=== PATIENT | female | born 1965 | race American Indian/Alaskan Native ===

== ENCOUNTER 2017-03-05 13:00 | Emergency (ER) | payer OTHER ==
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
[2017-03-05] MEDS ORDERED: HYDROmorphone 1 MG/ML Syringe IVPUSH ONE (13:32)
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
[2017-03-05 13:42] LABS: CHLORIDE,CL 102 mmol/L (101-111); SODIUM,NA 139 mmol/L (135-145)
--- NOTE | 2017-03-18 09:12 | EKG ---
03/05/2017- NICOLE MARIANO - EKG done on 51-year-old female showing sinus rhythm, normal axis. Heart rate of 84 beats per minute, No acute ST-T wave changes. [facility] /[id number] MTDD
== END 2017-03-05 14:37 | disposition home or self-care (01) ==
LOC: DL.ED 13:00
DX: S06.0X9A Concussion with loss of consciousness of unspecified duration, initial encounter (principal); S20.211A Contusion of right front wall of thorax, initial encounter; V89.2XXA Person injured in unspecified motor-vehicle accident, traffic, initial encounter; Z79.899 Other long term (current) drug therapy
CPT/HCPCS: 36415; 71010; 80053; 80305; 81001; 82550; 82553; 84484; 85025; 93005; 96374; 99285; G0480; J1170

== ENCOUNTER 2017-07-18 09:13 | Emergency (ER) | payer OTHER ==
--- NOTE | 2017-07-18 09:21 | EDM.PDOC ---
"ED HPI GENERAL MEDICAL PROBLEM - General Chief Complaint: Abdominal Pain Stated Complaint: ABDOMINAL PAIN Time Seen by Provider: 07/18/17 09:19 Source of Information: Reports: Patient, RN, RN Notes Reviewed History Limitations: Reports: No Limitations - History of Present Illness INITIAL COMMENTS - FREE TEXT/NARRATIVE: Pt presents to ER from home by POV with c/o left lower abdominal pain on and off x3 weeks, but much worse since yesterday. Pt admits to onset of fever and chills yesterday, and has nausea, alternating diarrhea & constipation, and urinary frequency. Denies vomiting, or blood in urine or stool. Onset: Gradual Duration: Constant, Getting Worse Location: Reports: Abdomen Quality: Reports: Ache, Pressure Severity: Severe Improves with: Reports: None Worsens with: Reports: None Associated Symptoms: Reports: No Other Symptoms Left Middle Abdomen Pain Score (Numeric/FACES): 6 - Related Data Allergies Allergy/AdvReac Type Severity Reaction Status Date / Time codeine Allergy Mild stomach Verified 07/18/17 09:20 cramping Home Meds: Home Meds Calcium Carbonate [Calcium] 500 mg PO DAILY 03/05/17 [History] Cholecalciferol (Vitamin D3) [Vitamin D3] 1 tab PO DAILY 03/05/17 [History] Multivitamin [Multi-Vitamin Daily] 1 tab PO DAILY 03/05/17 [History] Past Medical History - Past Health History Medical/Surgical History: Denies Medical/Surgical History Endocrine/Metabolic History: Reports: Obesity/BMI 30+ Social & Family History - Family History Family Medical History: Noncontributory - Living Situation & Occupation Living situation: Reports: with Family ED ROS GENERAL - Review of Systems Review Of Systems: ROS reveals no pertinent complaints other than HPI. ED EXAM, GI/ABD - Physical Exam Exam: See Below Exam Limited By: No Limitations General Appearance: Alert, WD/WN, No Apparent Distress, Obese Eyes: Bilateral: Normal Appearance Nose: Normal Inspection Throat/Mouth: Normal Inspection Head: Atraumatic, Normocephalic Neck: Normal Inspection Respiratory/Chest: No Respiratory Distress, Lungs Clear, Normal Breath Sounds, No Accessory Muscle Use, Chest Non-Tender Cardiovascular: Regular Rate, Rhythm, No Edema GI/Abdominal Exam: Normal Bowel Sounds, Soft, No Distention, Tender (acutely tender to palpation at LLQ abdomen). No: Guarding, Rigid, Rebound (Female) Exam: Deferred Rectal (Female) Exam: Deferred Back Exam: Normal Inspection, Full Range of Motion. No: CVA Tenderness (L), CVA Tenderness (R) Extremities: Normal Inspection Neurological: Alert, Oriented, No Motor/Sensory Deficits Psychiatric: Normal Affect, Normal Mood Skin Exam: Warm, Dry, Intact, Normal Color, No Rash Course - Vital Signs Last Recorded V/S: Last Vital Signs Temp 36.2 C 07/18/17 11:15 Pulse 57 L 07/18/17 11:15 Resp 19 07/18/17 11:15 BP 124/82 07/18/17 11:15 Pulse Ox 99 07/18/17 11:15 - Orders/Labs/Meds Orders: Active Orders 24 hr Category Date Time Status Peripheral IV Care [RC] . DIRECTED Care 07/18/17 09:50 Active Abdomen Pelvis w wo Cont [CT] Stat Exams 07/18/17 09:48 Taken Ciprofloxacin [Ciprofloxacin HCl] Med 07/18/17 11:17 Once 500 mg PO ONETIME ONE Sodium Chloride 0.9% [Saline Flush] Med 07/18/17 09:48 Active 10 ml FLUSH ASDIRECTED PRN metroNIDAZOLE Med 07/18/17 11:18 Once 500 mg PO ONETIME ONE Peripheral IV Insertion Adult [OM.PC] Stat Oth 07/18/17 09:48 Ordered Medication Orders Sodium Chloride (Saline Flush) 10 ml FLUSH ASDIRECTED PRN PRN Reason: Keep Vein Open Last Admin: 07/18/17 09:59 Dose: 10 ml Labs: Laboratory Tests 07/18/17 07/18/17 07/18/17 Range/Units 09:25 09:41 09:41 WBC 10.2 H (5.0-10.0) 10^3/uL RBC 4.64 (4.2-5.4) 10^6/uL Hgb 14.4 (12.0-16.0) g/dL Hct 44.2 (37.0-47.0) % MCV 95.3 (80-100) fL MCH 31.0 (27.0-34.0) pg MCHC 32.6 L (33.0-35.0) g/dL Plt Count 249 (150-450) 10^3/uL Neut % (Auto) 68.7 (42.2-75.2) % Lymph % (Auto) 19.8 L (20.5-50.1) % [place] % (Auto) 7.9 (2-8) % Eos % (Auto) 3.3 H (1.0-3.0) % Baso % (Auto) 0.3 (0.0-1.0) % Sodium 138 (135-145) mmol/L Potassium 4.4 (3.6-5.0) mmol/L Chloride 106 (101-111) mmol/L Carbon Dioxide 26.0 (21.0-31.0) mmol/L Anion Gap 10.4 BUN 12 (7-18) mg/dL Creatinine 0.8 (0.6-1.3) mg/dL Est Cr Clr Drug Dosing 81.81 mL/min Estimated GFR (MDRD) > 60 BUN/Creatinine Ratio 15.00 Glucose 99 (74-105) mg/dL Calcium 9.1 (8.4-10.2) mg/dl Total Bilirubin 1.1 H (0.2-1.0) mg/dL AST 15 (10-42) IU/L ALT 15 (10-60) IU/L Alkaline Phosphatase 95 (42-121) IU/L Total Protein 7.6 (6.7-8.2) g/dl Albumin 3.9 (3.2-5.5) g/dl Globulin 3.7 Albumin/Globulin Ratio 1.05 Amylase 34 (28-100) U/L Lipase 23 (22-51) U/L Urine Color Yellow (YELLOW) Urine Appearance Slightly cloudy (CLEAR) Urine pH 5.5 (5.0-9.0) Ur Specific [place] >= 1.030 (1.005-1.030) Urine Protein 30 H (NEGATIVE) Urine Glucose (UA) Negative (NEGATIVE) Urine Ketones Negative (NEGATIVE) Urine Occult Blood Trace-lysed H (NEGATIVE) Urine Nitrite Negative (NEGATIVE) Urine Bilirubin Small H (NEGATIVE) Urine Urobilinogen 0.2 (0.2-1.0) mg/dL Ur Leukocyte Esterase Negative (NEGATIVE) Urine RBC 0-5 /HPF Urine WBC 0-5 (0-5/HPF) /HPF Ur Epithelial Cells Few /HPF Amorphous Sediment Moderate H (0/HPF) /HPF Urine Bacteria Rare (0-FEW/HPF) /HPF Urine Mucus Few H /LPF Meds: Medications Generic Name Dose Route Start Last Admin Trade Name Freq PRN Reason Stop Dose Admin Sodium Chloride 10 ml 07/18/17 09:48 07/18/17 09:59 Saline Flush FLUSH 10 ml ASDIRECTED PRN Administration Keep Vein Open Discontinued Medications Generic Name Dose Route Start Last Admin Trade Name Freq PRN Reason Stop Dose Admin Iopamidol 75 ml 07/18/17 09:47 07/18/17 10:31 Isovue-300 (61%) IVPUSH 07/18/17 09:48 75 ml ONETIME ONE Administration - Radiology Interpretation Free Text/Narrative:: CT Abd/Pelvis: ABDOMEN: Liver: The liver is fatty in density. It appears otherwise unremarkable. Gallbladder and bile ducts: Cholecystectomy clips are present. No ductal dilation. Pancreas: Unremarkable. No mass. No ductal dilation. NICOLE MARIANO | Final Radiology Report CONFIDENTIALITY STATEMENT This report is intended only for use by the referring physician, and only in accordance with law. If you received this in error, call [phone]. Page 2 of 2 Spleen: Unremarkable. No splenomegaly. Adrenals: Unremarkable. No mass. Kidneys and ureters: There is no hydronephrosis, and no renal or ureteral calculus is identified. The kidneys appear unremarkable. Stomach and bowel: There is mild distal transverse, descending and sigmoid colonic diverticulosis. Mild localized pericolonic fatty haziness and stranding is present about the distal descending colon, compatible with diverticulitis. No discrete associated abscess is identified. The unopacified small bowel is not significantly distended to suggest obstruction. PELVIS: Appendix: The appendix appears normal. Bladder: Unremarkable. No mass. No stones. Reproductive: No gross adnexal abnormality is apparent, but ultrasound would be more appropriate in this regard. ABDOMEN and PELVIS: Intraperitoneal space: Unremarkable. No free air. No significant fluid collection. Bones/joints: Degenerative changes involve the spine and hips. No acute fracture. No dislocation. Soft tissues: Unremarkable. Vasculature: The abdominal aorta is nonaneurysmal. Lymph nodes: Unremarkable. No enlarged lymph nodes. IMPRESSION: 1. Mild left-sided colonic diverticulosis with mild distal descending diverticulitis. 2. Fatty liver. Thank you for allowing us to participate in the care of your patient. Dictated and Authenticated by: Edgardo Thomas MD 07/18/2017 11:13 AM Central Time ([place] & [place]) CT Results Date: 07/18/17 Departure - Departure Time of Disposition: 11:20 Disposition: Home, Self-Care 01 Condition: Good Clinical Impression: Diverticulitis - Discharge Information Instructions: Diverticulitis Forms: ED Department Discharge Additional Instructions: Rx: Cipro 500mg Rx: Flagyl (Metronidazole) 500mg Follow up in clinic in 5 to 7 days for recheck. Return to ER if worse at any time. - My Orders Last 24 Hours: My Active Orders 07/18/17 09:48 Abdomen Pelvis w wo Cont [CT] Stat Sodium Chloride 0.9% [Saline Flush] 10 ml FLUSH ASDIRECTED PRN Peripheral IV Insertion Adult [OM.PC] Stat 07/18/17 09:50 Peripheral IV Care [RC] . DIRECTED 07/18/17 11:17 Ciprofloxacin [Ciprofloxacin HCl] 500 mg PO ONETIME ONE 07/18/17 11:18 metroNIDAZOLE 500 mg PO ONETIME ONE - Assessment/Plan Last 24 Hours: My Active Orders 07/18/17 09:48 Abdomen Pelvis w wo Cont [CT] Stat Sodium Chloride 0.9% [Saline Flush] 10 ml FLUSH ASDIRECTED PRN Peripheral IV Insertion Adult [OM.PC] Stat 07/18/17 09:50 Peripheral IV Care [RC] . DIRECTED 07/18/17 11:17 Ciprofloxacin [Ciprofloxacin HCl] 500 mg PO ONETIME ONE 07/18/17 11:18 metroNIDAZOLE 500 mg PO ONETIME ONE"
[2017-07-18] MEDS ORDERED: Iopamidol 612 MG/ML 75 ML Bottle IVPUSH ONE (09:47)
[2017-07-18] MEDS ORDERED: Sodium Chloride 0.9% 10 ML Syringe FLUSH PRN (09:48)
[2017-07-18 10:12] LABS: CHLORIDE,CL 106 mmol/L (101-111); SODIUM,NA 138 mmol/L (135-145)
[2017-07-18] MEDS ORDERED: Ciprofloxacin 500 MG Tab PO ONE (11:17)
[2017-07-18] MEDS ORDERED: metroNIDAZOLE 250 MG Tab PO ONE (11:18)
== END 2017-07-18 11:40 | disposition home or self-care (01) ==
LOC: DL.ED 09:13
DX: K57.92 Diverticulitis of intestine, part unspecified, without perforation or abscess without bleeding (principal); Z88.5 Allergy status to narcotic agent; Z79.899 Other long term (current) drug therapy
CPT/HCPCS: 36415; 74178; 80053; 81001; 82150; 83690; 85025; 99284; A9270; J7050; Q9967

== ENCOUNTER 2018-08-28 16:57 | Emergency (ER) | payer BC, OTHER ==
[2018-08-28] MEDS ORDERED: Omeprazole 20 MG Cap.CR PO ONE ×2 (16:58→18:57)
[2018-08-28 18:07] LABS: ANION GAP 11.4; CHLORIDE,CL 107 mmol/L (101-111); SODIUM,NA 138 mmol/L (135-145)
[2018-08-28] MEDS ORDERED: GI Cocktail Oral Solution 30 ML PO ONE (18:12)
--- NOTE | 2018-08-28 18:57 | EDM.PDOC ---
ED HPI GENERAL MEDICAL PROBLEM - General Chief Complaint: Abdominal Pain Stated Complaint: ABD PAIN Time Seen by Provider: 08/28/18 18:02 Source of Information: Reports: Patient, RN, RN Notes Reviewed History Limitations: Reports: No Limitations - History of Present Illness INITIAL COMMENTS - FREE TEXT/NARRATIVE: Patient presents to ER with complaint of epigastric pain up into the chest since yesterday. She took 2 Zantac at 0130 with no relief. She woke up with foam in her mouth. She vomited the foam with specks of blood. Pain is better this a.m. She had breakfast with bloating, nausea, vomiting and fatigue. Her last bowel movement was today. She has had no fever, chills, diarrhea,or shortness of breath. She rates her pain 7-9/10. She has her gallbladder. Onset Date: 08/27/18 Duration: Getting Worse Location: Reports: Abdomen (in epigastric area) Quality: Reports: Ache Severity: Moderate Improves with: Reports: None Worsens with: Reports: None Associated Symptoms: Reports: No Other Symptoms - Related Data Allergies Allergy/AdvReac Type Severity Reaction Status Date / Time codeine Allergy Mild stomach Verified 08/28/18 17:07 cramping Home Meds: Home Meds Calcium Carbonate [Calcium] 500 mg PO DAILY 03/05/17 [History] Cholecalciferol (Vitamin D3) [Vitamin D3] 1 tab PO DAILY 03/05/17 [History] Multivitamin [Multi-Vitamin Daily] 1 tab PO DAILY 03/05/17 [History] Diclofenac Sodium 1 gram TOP ASDIRECTED PRN 08/28/18 [History] Lidocaine 5 mg TOP ASDIRECTED PRN 08/28/18 [History] Meloxicam 15 mg PO ASDIRECTED PRN 08/28/18 [History] Past Medical History - Past Health History Medical/Surgical History: Denies Medical/Surgical History Musculoskeletal History: Reports: Other (See Below) Other Musculoskeletal History: knee pain Endocrine/Metabolic History: Reports: Obesity/BMI 30+ - Past Surgical History GI Surgical History: Reports: Cholecystectomy Female Surgical History: Reports: Section Social & Family History - Family History Family Medical History: Noncontributory - Tobacco Use Smoking Status *Q: Former Smoker Used Tobacco, but Quit: Yes Month/Year Tobacco Last Used: 3 - Caffeine Use Caffeine Use: Reports: Coffee, Soda - Recreational Drug Use Recreational Drug Use: No - Living Situation & Occupation Living situation: Reports: with Family ED ROS GENERAL - Review of Systems Review Of Systems: ROS reveals no pertinent complaints other than HPI. ED EXAM, GI/ABD - Physical Exam Exam: See Below Exam Limited By: No Limitations General Appearance: Alert, WD/WN, No Apparent Distress Eyes: Bilateral: Normal Appearance Ears: Normal External Exam, Normal Canal, Hearing Grossly Normal, Normal TMs Nose: Normal Inspection, Normal Mucosa, No Blood Throat/Mouth: Normal Inspection, Normal Lips, Normal Teeth, Normal Gums, Normal Oropharynx, Normal Voice, No Airway Compromise Head: Atraumatic, Normocephalic Neck: Normal Inspection, Supple, Non-Tender, Full Range of Motion Respiratory/Chest: No Respiratory Distress, Lungs Clear, Normal Breath Sounds, No Accessory Muscle Use, Chest Non-Tender Cardiovascular: Normal Peripheral Pulses, Regular Rate, Rhythm, No Edema, No Gallop, No JVD, No Murmur, No Rub GI/Abdominal Exam: Other (tender and burning in epigastric area) (Female) Exam: Deferred Rectal (Female) Exam: Deferred Back Exam: Normal Inspection, Full Range of Motion, NT Extremities: Normal Inspection, Normal Range of Motion, Non-Tender, Normal Capillary Refill, No Pedal Edema Neurological: Alert, Oriented, CN II-XII Intact, Normal Cognition, Normal Gait, Normal Reflexes, No Motor/Sensory Deficits Psychiatric: Normal Affect, Normal Mood Skin Exam: Warm, Dry, Intact, Normal Color, No Rash Lymphatic: No Adenopathy Course - Vital Signs Last Recorded V/S: Last Vital Signs Temp 97.6 F 08/28/18 17:03 Pulse 56 L 08/28/18 17:03 Resp 16 08/28/18 17:03 BP 147/77 H 08/28/18 17:03 Pulse Ox 99 08/28/18 17:03 - Orders/Labs/Meds Orders: Active Orders 24 hr Category Date Time Status EKG 12 Lead [EKG Documentation Completion] [RC] STAT Care 08/28/18 17:47 Active CULTURE URINE [RM] Stat Lab 08/28/18 18:00 Received Labs: Laboratory Tests 08/28/18 08/28/18 08/28/18 Range/Units 17:41 17:41 18:00 WBC 8.1 (5.0-10.0) 10^3/uL RBC 4.58 (4.2-5.4) 10^6/uL Hgb 14.1 (12.0-16.0) g/dL Hct 44.0 (37.0-47.0) % MCV 96.1 (80-100) fL MCH 30.8 (27.0-34.0) pg MCHC 32.0 L (33.0-35.0) g/dL Plt Count 252 (150-450) 10^3/uL Neut % (Auto) 62.2 (42.2-75.2) % Lymph % (Auto) 24.9 (20.5-50.1) % [place] % (Auto) 7.8 (2-8) % Eos % (Auto) 4.7 H (1.0-3.0) % Baso % (Auto) 0.4 (0.0-1.0) % Sodium 138 (135-145) mmol/L Potassium 4.4 (3.6-5.0) mmol/L Chloride 107 (101-111) mmol/L Carbon Dioxide 24.0 (21.0-31.0) mmol/L Anion Gap 11.4 BUN 12 (7-18) mg/dL Creatinine 0.7 (0.6-1.3) mg/dL Est Cr Clr Drug Dosing 92.46 mL/min Estimated GFR (MDRD) > 60 BUN/Creatinine Ratio 17.14 Glucose 98 (74-105) mg/dL Calcium 8.6 (8.4-10.2) mg/dl Total Bilirubin 0.7 (0.2-1.0) mg/dL AST 19 (10-42) IU/L ALT 35 (10-60) IU/L Alkaline Phosphatase 95 (42-121) IU/L Troponin I < 0.02 (0.00-0.02) ng/ml Total Protein 7.2 (6.7-8.2) g/dl Albumin 4.1 (3.2-5.5) g/dl Globulin 3.1 Albumin/Globulin Ratio 1.32 Urine Color Yellow (YELLOW) Urine Appearance Clear (CLEAR) Urine pH 6.0 (5.0-9.0) Ur Specific [place] 1.015 (1.005-1.030) Urine Protein Negative (NEGATIVE) Urine Glucose (UA) Negative (NEGATIVE) Urine Ketones Negative (NEGATIVE) Urine Occult Blood Negative (NEGATIVE) Urine Nitrite Negative (NEGATIVE) Urine Bilirubin Negative (NEGATIVE) Urine Urobilinogen 0.2 (0.2-1.0) mg/dL Ur Leukocyte Esterase Small H (NEGATIVE) Urine RBC 5-10 H /HPF Urine WBC 10-20 H (0-5/HPF) /HPF Ur Epithelial Cells Moderate H (NOT SEEN) /HPF Urine Bacteria Moderate H (0-FEW/HPF) /HPF Meds: Medications Discontinued Medications Generic Name Dose Route Start Last Admin Trade Name Shadiq PRN Reason Stop Dose Admin Al Hydroxide/Mg Hydroxide 30 ml 08/28/18 18:12 08/28/18 18:48 Gi Cocktail PO 08/28/18 18:13 30 ml ONETIME ONE Administration Omeprazole 20 mg 08/28/18 18:57 08/28/18 19:04 Omeprazole PO 08/28/18 18:58 20 mg ONETIME ONE Administration Omeprazole Confirm 08/28/18 19:01 08/28/18 19:04 Omeprazole Administered 08/28/18 19:02 Not Given Dose 20 mg .ROUTE .STK-MED ONE Departure - Departure Time of Disposition: 20:16 Disposition: Home, Self-Care 01 Condition: Fair Clinical Impression: Abdominal pain Qualifiers: Abdominal location: epigastric Qualified Code(s): R10.13 - Epigastric pain GERD (gastroesophageal reflux disease) Qualifiers: Esophagitis presence: esophagitis presence not specified Qualified Code(s): K21.9 - Gastro-esophageal reflux disease without esophagitis - Discharge Information *PRESCRIPTION DRUG MONITORING PROGRAM REVIEWED*: No *COPY OF PRESCRIPTION DRUG MONITORING REPORT IN PATIENT HUGO: No Instructions: Indigestion, [id number], Food Choices for Gastroesophageal Reflux Disease, Adult, [id number], Heartburn, [id number], Abdominal Pain, Adult, [id number] Referrals: Pati Chamberlain MD [Primary Care Provider] - Forms: ED Department Discharge Additional Instructions: RX: Omeprazole Sit upright for 30-60 minutes after Avoid spicy foods, caffeine, mint, tea, chocolate Drink plenty of water Follow up with your primary care facility Thursday for POSSIBLE MRI SCAN OF LUNG and GASTROSCOPY FOR GERD - My Orders Last 24 Hours: My Active Orders 08/28/18 17:47 EKG 12 Lead [EKG Documentation Completion] [RC] STAT 08/28/18 18:00 CULTURE URINE [RM] Stat - Assessment/Plan Last 24 Hours: My Active Orders 08/28/18 17:47 EKG 12 Lead [EKG Documentation Completion] [RC] STAT 08/28/18 18:00 CULTURE URINE [RM] Stat
[2018-08-28] MEDS ORDERED: Omeprazole 20 MG Cap.CR ONE (19:01)
== END 2018-08-28 20:15 | disposition home or self-care (01) ==
LOC: DL.ED 16:57
DX: K21.9 Gastro-esophageal reflux disease without esophagitis (principal); Z88.5 Allergy status to narcotic agent; Z79.899 Other long term (current) drug therapy; Z87.891 Personal history of nicotine dependence
CPT/HCPCS: 36415; 71045; 71046; 80053; 81001; 84484; 85025; 87086; 93005; 99284; A9270

== ENCOUNTER 2019-04-26 18:12 | Emergency (ER) | payer BC, OTHER ==
[2019-04-26] MEDS ORDERED: Ondansetron 4 MG Tab.DIS PO ONE (18:13)
--- NOTE | 2019-04-26 19:51 | EDM.PDOC ---
ED HPI GENERAL MEDICAL PROBLEM - General Chief Complaint: Gastrointestinal Problem Stated Complaint: VOMITING TWO DAYS Time Seen by Provider: 04/26/19 19:40 Source of Information: Reports: Patient, RN, RN Notes Reviewed History Limitations: Reports: No Limitations - History of Present Illness INITIAL COMMENTS - FREE TEXT/NARRATIVE: patient presents to ER with complaint of nausea, vomiting, diarrhea. Patient states the nausea and vomiting began yesterday, and the diarrhea began this morning. Patient states she has had 2 episodes of diarrhea. Patient denies any urinary symptoms, frequency, urgency, burning with urination, chances of as she states she has had a tubal ligation. States she has a history of anxiety. Denies having her gallbladder, but states she still has her appendix. Patient states she gets cold sweats at times, and states she does have body aches. Onset: Gradual Onset Date: 04/25/19 Duration: Constant, Getting Worse Location: Reports: Abdomen Quality: Reports: Sharp Severity: Moderate Associated Symptoms: Reports: Fever/Chills, Loss of Appetite, Malaise, Nausea/ Vomiting, Weakness Abdomen Pain Score (Numeric/FACES): 8 - Related Data Allergies Allergy/AdvReac Type Severity Reaction Status Date / Time codeine Allergy Mild stomach Verified 09/08/18 06:41 cramping Home Meds: Home Meds Calcium Carbonate [Calcium] 500 mg PO DAILY 03/05/17 [History] Multivitamin [Multi-Vitamin Daily] 1 tab PO DAILY 03/05/17 [History] Cholecalciferol (Vitamin D3) [Vitamin D3] 1,000 unit PO DAILY 09/06/18 [History] Past Medical History - Past Health History Medical/Surgical History: Denies Medical/Surgical History HEENT History: Reports: None Cardiovascular History: Reports: None Respiratory History: Reports: None, Sleep Apnea Gastrointestinal History: Reports: Chronic Constipation Genitourinary History: Reports: None 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: Musculoskeletal History: Reports: Other (See Below) Other Musculoskeletal History: knee pain Neurological History: Reports: Headaches, Chronic Psychiatric History: Reports: Anxiety Endocrine/Metabolic History: Reports: None, Obesity/BMI 30+ Hematologic History: Reports: None Immunologic History: Reports: None Oncologic (Cancer) History: Reports: None Dermatologic History: Reports: None - Infectious Disease History Infectious Disease History: Reports: None - Past Surgical History Head Surgeries/Procedures: Reports: None HEENT Surgical History: Reports: None Cardiovascular Surgical History: Reports: None Respiratory Surgical History: Reports: None GI Surgical History: Reports: Cholecystectomy, Colonoscopy Social & Family History - Family History Family Medical History: Noncontributory - Tobacco Use Smoking Status *Q: Current Every Day Smoker Years of Tobacco use: 30 Packs/Tins Daily: 1 - Caffeine Use Caffeine Use: Reports: Coffee, Energy Drinks, Soda, Tea Caffeine Use Comment: 1-2 cups daily - Recreational Drug Use Recreational Drug Use: No - Living Situation & Occupation Living situation: Reports: with Family ED ROS GENERAL - Review of Systems Review Of Systems: Comprehensive ROS is negative, except as noted in HPI. ED EXAM, GI/ABD - Physical Exam Exam: See Below Exam Limited By: No Limitations General Appearance: Alert, WD/WN, Moderate Distress Eyes: Bilateral: Normal Appearance, EOMI Ears: Normal External Exam, Hearing Grossly Normal Nose: Normal Inspection Throat/Mouth: Normal Inspection, Normal Voice, No Airway Compromise Head: Atraumatic, Normocephalic Neck: Normal Inspection, Supple, Non-Tender, Full Range of Motion Respiratory/Chest: No Respiratory Distress, Lungs Clear, Normal Breath Sounds, No Accessory Muscle Use, Chest Non-Tender Cardiovascular: Normal Peripheral Pulses, Regular Rate, Rhythm, No Edema, No Gallop, No JVD, No Murmur, No Rub GI/Abdominal Exam: Normal Bowel Sounds, Soft, No Organomegaly, No Distention, No Abnormal Bruit, No Mass, Pelvis Stable, Tender (Female) Exam: Deferred Rectal (Female) Exam: Deferred Back Exam: Normal Inspection, Full Range of Motion, NT Extremities: Normal Inspection, Normal Range of Motion, Non-Tender, Normal Capillary Refill, No Pedal Edema Neurological: Alert, Oriented, CN II-XII Intact, Normal Cognition, Normal Gait, Normal Reflexes, No Motor/Sensory Deficits Psychiatric: Normal Affect, Normal Mood, Anxious Skin Exam: Warm, Dry, Intact, Normal Color, No Rash Lymphatic: No Adenopathy Course - Vital Signs Last Recorded V/S: Last Vital Signs Temp 98.4 F 04/26/19 18:29 Pulse 81 04/26/19 18:29 Resp 16 04/26/19 18:29 BP 133/74 04/26/19 18:29 Pulse Ox 96 04/26/19 18:29 - Orders/Labs/Meds Orders: Active Orders 24 hr Category Date Time Status Peripheral IV Care [RC] . DIRECTED Care 04/26/19 19:48 Active Sodium Chloride 0.9% [Saline Flush] Med 04/26/19 19:48 Active 10 ml FLUSH ASDIRECTED PRN Peripheral IV Insertion Adult [OM.PC] Stat Oth 04/26/19 19:48 Ordered Medication Orders Sodium Chloride (Saline Flush) 10 ml FLUSH ASDIRECTED PRN PRN Reason: Keep Vein Open Last Admin: 04/26/19 19:57 Dose: 10 ml Labs: Laboratory Tests 04/26/19 04/26/19 04/26/19 Range/Units 19:43 19:43 19:43 WBC (5.0-10.0) 10^3/uL RBC (4.2-5.4) 10^6/uL Hgb (12.0-16.0) g/dL Hct (37.0-47.0) % MCV (80-100) fL MCH (27.0-34.0) pg MCHC (33.0-35.0) g/dL Plt Count (150-450) 10^3/uL Neut % (Auto) (42.2-75.2) % Lymph % (Auto) (20.5-50.1) % [place] % (Auto) (2-8) % Eos % (Auto) (1.0-3.0) % Baso % (Auto) (0.0-1.0) % Sodium (135-145) mmol/L Potassium (3.6-5.0) mmol/L Chloride (101-111) mmol/L Carbon Dioxide (21.0-31.0) mmol/L Anion Gap BUN (7-18) mg/dL Creatinine (0.6-1.3) mg/dL Est Cr Clr Drug Dosing mL/min Estimated GFR (MDRD) BUN/Creatinine Ratio Glucose (74-105) mg/dL Calcium (8.4-10.2) mg/dl Total Bilirubin (0.2-1.0) mg/dL AST (10-42) IU/L ALT (10-60) IU/L Alkaline Phosphatase (42-121) IU/L Total Protein (6.7-8.2) g/dl Albumin (3.2-5.5) g/dl Globulin Albumin/Globulin Ratio Urine Color Yellow (YELLOW) Urine Appearance Slightly cloudy (CLEAR) Urine pH 5.5 (5.0-9.0) Ur Specific [place] >= 1.030 (1.005-1.030) Urine Protein Trace H (NEGATIVE) Urine Glucose (UA) Negative (NEGATIVE) Urine Ketones Negative (NEGATIVE) Urine Occult Blood Trace-intact H (NEGATIVE) Urine Nitrite Negative (NEGATIVE) Urine Bilirubin Negative (NEGATIVE) Urine Urobilinogen 0.2 (0.2-1.0) mg/dL Ur Leukocyte Esterase Small H (NEGATIVE) Urine RBC 0-5 /HPF Urine WBC 0-5 (0-5/HPF) /HPF Ur Epithelial Cells Many H (NOT SEEN) /HPF Amorphous Sediment Few (NOT SEEN) /HPF Urine Bacteria Few (0-FEW/HPF) /HPF Urine Mucus Many H (NOT SEEN) /LPF Urine HCG, Qual Negative Urine Opiates Screen Negative (NEGATIVE) Ur Oxycodone Screen Negative (NEGATIVE) Urine Methadone Screen Negative (NEGATIVE) Ur Barbiturates Screen Negative (NEGATIVE) U Tricyclic Antidepress Negative (NEGATIVE) Ur Phencyclidine Scrn Negative (NEGATIVE) Ur Amphetamine Screen Negative (NEGATIVE) U Methamphetamines Scrn Negative (NEGATIVE) Urine MDMA Screen Negative (NEGATIVE) U Benzodiazepines Scrn Negative (NEGATIVE) Urine Cocaine Screen Negative (NEGATIVE) U Marijuana (THC) Screen Positive H (NEGATIVE) 04/26/19 04/26/19 Range/Units 20:04 20:04 WBC 8.2 (5.0-10.0) 10^3/uL RBC 4.93 (4.2-5.4) 10^6/uL Hgb 15.5 (12.0-16.0) g/dL Hct 46.2 (37.0-47.0) % MCV 93.7 (80-100) fL MCH 31.4 (27.0-34.0) pg MCHC 33.5 (33.0-35.0) g/dL Plt Count 222 (150-450) 10^3/uL Neut % (Auto) 85.8 H (42.2-75.2) % Lymph % (Auto) 8.9 L (20.5-50.1) % [place] % (Auto) 4.7 (2-8) % Eos % (Auto) 0.5 L (1.0-3.0) % Baso % (Auto) 0.1 (0.0-1.0) % Sodium 138 (135-145) mmol/L Potassium 3.8 (3.6-5.0) mmol/L Chloride 106 (101-111) mmol/L Carbon Dioxide 23.0 (21.0-31.0) mmol/L Anion Gap 12.8 BUN 12 (7-18) mg/dL Creatinine 0.7 (0.6-1.3) mg/dL Est Cr Clr Drug Dosing 84.59 mL/min Estimated GFR (MDRD) > 60 BUN/Creatinine Ratio 17.14 Glucose 105 (74-105) mg/dL Calcium 8.6 (8.4-10.2) mg/dl Total Bilirubin 0.9 (0.2-1.0) mg/dL AST 17 (10-42) IU/L ALT 17 (10-60) IU/L Alkaline Phosphatase 97 (42-121) IU/L Total Protein 7.2 (6.7-8.2) g/dl Albumin 4.0 (3.2-5.5) g/dl Globulin 3.2 Albumin/Globulin Ratio 1.25 Urine Color (YELLOW) Urine Appearance (CLEAR) Urine pH (5.0-9.0) Ur Specific [place] (1.005-1.030) Urine Protein (NEGATIVE) Urine Glucose (UA) (NEGATIVE) Urine Ketones (NEGATIVE) Urine Occult Blood (NEGATIVE) Urine Nitrite (NEGATIVE) Urine Bilirubin (NEGATIVE) Urine Urobilinogen (0.2-1.0) mg/dL Ur Leukocyte Esterase (NEGATIVE) Urine RBC /HPF Urine WBC (0-5/HPF) /HPF Ur Epithelial Cells (NOT SEEN) /HPF Amorphous Sediment (NOT SEEN) /HPF Urine Bacteria (0-FEW/HPF) /HPF Urine Mucus (NOT SEEN) /LPF Urine HCG, Qual Urine Opiates Screen (NEGATIVE) Ur Oxycodone Screen (NEGATIVE) Urine Methadone Screen (NEGATIVE) Ur Barbiturates Screen (NEGATIVE) U Tricyclic Antidepress (NEGATIVE) Ur Phencyclidine Scrn (NEGATIVE) Ur Amphetamine Screen (NEGATIVE) U Methamphetamines Scrn (NEGATIVE) Urine MDMA Screen (NEGATIVE) U Benzodiazepines Scrn (NEGATIVE) Urine Cocaine Screen (NEGATIVE) U Marijuana (THC) Screen (NEGATIVE) Meds: Medications Generic Name Dose Route Start Last Admin Trade Name Freq PRN Reason Stop Dose Admin Sodium Chloride 10 ml 04/26/19 19:48 04/26/19 19:57 Saline Flush FLUSH 10 ml ASDIRECTED PRN Administration Keep Vein Open Discontinued Medications Generic Name Dose Route Start Last Admin Trade Name Shadiq PRN Reason Stop Dose Admin Sodium Chloride 1,000 mls @ 999 mls/hr 04/26/19 19:48 04/26/19 20:01 Normal Saline IV 04/26/19 20:48 999 mls/hr .BOLUS ONE Administration Metoclopramide HCl 10 mg 04/26/19 20:27 04/26/19 20:32 Reglan IVPUSH 04/26/19 20:28 10 mg ONETIME ONE Administration Ondansetron HCl 4 mg 04/26/19 19:48 04/26/19 20:02 Zofran IV 04/26/19 19:49 4 mg ONETIME ONE Administration Departure - Departure Time of Disposition: 21:48 Disposition: Home, Self-Care 01 Condition: Fair Clinical Impression: Gastroenteritis, Vomiting, Diarrhea - Discharge Information *PRESCRIPTION DRUG MONITORING PROGRAM REVIEWED*: No *COPY OF PRESCRIPTION DRUG MONITORING REPORT IN PATIENT HUGO: No Instructions: Viral Gastroenteritis, Adult, [id number], Food Choices to Help Relieve Diarrhea, Adult, Nausea, Adult, [id number], Diarrhea, Adult, Easy-to- Read, Nausea and Vomiting, Adult, [id number] Forms: ED Department Discharge Additional Instructions: Small amounts of fluids frequently May use Zofran orally as directed for nausea May use over the counter Imodium for diarrhea as directed Follow up with your primary care facility if no improvement Sepsis Event Note - Evaluation Sepsis Screening Result: No Definite Risk - Focused Exam Vital Signs: Vital Signs Temp Pulse Resp BP Pulse Ox 04/26/19 18:29 98.4 F 81 16 133/74 96 Date Exam was Performed: 04/26/19 Time Exam was Performed: 21:48 - My Orders Last 24 Hours: My Active Orders 04/26/19 19:48 Peripheral IV Care [RC] . DIRECTED Sodium Chloride 0.9% [Saline Flush] 10 ml FLUSH ASDIRECTED PRN Peripheral IV Insertion Adult [OM.PC] Stat - Assessment/Plan Last 24 Hours: My Active Orders 04/26/19 19:48 Peripheral IV Care [RC] . DIRECTED Sodium Chloride 0.9% [Saline Flush] 10 ml FLUSH ASDIRECTED PRN Peripheral IV Insertion Adult [OM.PC] Stat
[2019-04-26] MEDS: Sodium Chloride 0.9% 10 ML Syringe FLUSH PRN (19:57)
[2019-04-26] MEDS: Sodium Chloride 0.9% 1,000 ML IV ONE (20:01)
[2019-04-26] MEDS: Ondansetron 4 MG/2 ML SDV IV ONE (20:02)
[2019-04-26] MEDS: Metoclopramide 10 MG/2 ML SDV IVPUSH ONE (20:32)
[2019-04-26 20:35] LABS: ANION GAP 12.8; CHLORIDE,CL 106 mmol/L (101-111); SODIUM,NA 138 mmol/L (135-145)
[2019-04-26] MEDS ORDERED: Ondansetron 4 MG Tab.DIS ONE (21:58)
== END 2019-04-26 22:09 | disposition home or self-care (01) ==
LOC: DL.ED 18:12
DX: K52.9 Noninfective gastroenteritis and colitis, unspecified (principal); F17.210 Nicotine dependence, cigarettes, uncomplicated; E66.9 Obesity, unspecified; Z68.32 Body mass index [BMI] 32.0-32.9, adult; Z88.5 Allergy status to narcotic agent
CPT/HCPCS: 36415; 80053; 80305-QW; 81001; 81025; 85025; 96361; 96374; 96375; 99284-25; A9270-GY; J2405; J2765; J7030

== ENCOUNTER 2019-11-12 17:55 | Emergency (ER) | payer OTHER ==
[2019-11-12] MEDS ORDERED: LORazepam 0.5 MG Tab PO ONE (20:14)
--- NOTE | 2019-11-12 21:21 | EDM.PDOC ---
Scribed by Radha Bae 11/12/192120 for Mika Mueller NP ED HPI GENERAL MEDICAL PROBLEM - General Chief Complaint: Head Injury Stated Complaint: PT SAYS HEAD TRAUMA, FAINTING,CANTSLEEP,BLOODVESSE Time Seen by Provider: 11/12/19 19:22 Source of Information: Reports: Patient, RN, RN Notes Reviewed History Limitations: Reports: No Limitations - History of Present Illness INITIAL COMMENTS - FREE TEXT/NARRATIVE: A 54-year-odl female who presents to the ER with left sided and neck pain. Patient reports a pallet fell on the left side of her head on September 20. She was seen in the clinic a month later because of increasing pain on the left side of her head and neck, which was not relieved with Ibuprofen. She had an MRI without contrast 2 days ago with results as indicated in the chart. Follow up MRI with contrast was recommended. Patient states that her mother from a brain tumor when she was 16 years old and she has been so anxious that this might be a brain tumor. She reports anxiety has prevented her from sleeping and this has worsened her pain. She was given muscle relaxants which she has not taken as she does not like medications. She reports that she has not been able to sleep in the last 24 hours despite taking Benadryl as Melatonin is not helping with sleep. She denies any recent falls, chest pain, shortness of breath, palpitations, blurred vision at this time. She states she does not drink water. Duration: Constant Location: Reports: Head, Neck Quality: Reports: Ache Severity: Moderate Head Pain Score (Numeric/FACES): 8 - Related Data Allergies Allergy/AdvReac Type Severity Reaction Status Date / Time codeine Allergy Mild stomach Verified 09/08/18 06:41 cramping Home Meds: Home Meds Calcium Carbonate [Calcium] 500 mg PO DAILY 03/05/17 [History] Multivitamin [Multi-Vitamin Daily] 1 tab PO DAILY 03/05/17 [History] Cholecalciferol (Vitamin D3) [Vitamin D3] 1,000 unit PO DAILY 09/06/18 [History] Past Medical History - Past Health History Medical/Surgical History: Denies Medical/Surgical History HEENT History: Reports: None Cardiovascular History: Reports: None Respiratory History: Reports: Sleep Apnea Gastrointestinal History: Reports: Chronic Constipation Genitourinary History: Reports: None 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: Musculoskeletal History: Reports: Other (See Below) Other Musculoskeletal History: knee pain Neurological History: Reports: Headaches, Chronic Psychiatric History: Reports: Anxiety Endocrine/Metabolic History: Reports: Obesity/BMI 30+ Hematologic History: Reports: None Immunologic History: Reports: None Oncologic (Cancer) History: Reports: None Dermatologic History: Reports: None - Infectious Disease History Infectious Disease History: Reports: None - Past Surgical History Head Surgeries/Procedures: Reports: None HEENT Surgical History: Reports: None Cardiovascular Surgical History: Reports: None Respiratory Surgical History: Reports: None GI Surgical History: Reports: Cholecystectomy, Colonoscopy Female Surgical History: Reports: Section Social & Family History - Family History Family Medical History: Noncontributory - Tobacco Use Smoking Status *Q: Current Every Day Smoker Years of Tobacco use: 15 Packs/Tins Daily: 0.3 Second Hand Smoke Exposure: Yes - Caffeine Use Caffeine Use: Reports: Coffee, Energy Drinks, Soda, Tea Caffeine Use Comment: 1-2 cups daily - Recreational Drug Use Recreational Drug Use: Yes Drug Use in Last 12 Months: Yes Recreational Drug Type: Reports: Marijuana/Hashish Recreational Drug Use Frequency: Rarely - Living Situation & Occupation Living situation: Reports: with Family ED ROS GENERAL - Review of Systems Review Of Systems: Comprehensive ROS is negative, except as noted in HPI. ED EXAM, HEAD INJURY - Physical Exam Exam: See Below Exam Limited By: No Limitations General Appearance: Alert, Mild Distress Head: Atraumatic, Normocephalic Eyes: Bilateral Eye: Normal Inspection Ears: Normal External Exam, Normal Canal, Hearing Grossly Normal, Normal TMs Nose: Normal Inspection, Normal Mucousa, No Blood Throat/Mouth: Normal Inspection, Normal Lips, Normal Gums, Normal Oropharynx, Normal Voice, No Airway Compromise Neck: Full Range of Motion, Normal Alignment, Paraspinous Muscle Tender (on the left side with palpation) Respiratory: No Respiratory Distress, Lungs Clear, Normal Breath Sounds, No Accessory Muscle Use, Chest Non-Tender Cardiovascular: Normal Peripheral Pulses, Regular Rate, Rhythm, No Edema, No Gallop, No JVD, No Murmur, No Rub Back Exam: Normal Inspection Extremities: Normal Inspection Neurologic: Alert, Oriented x 3 Skin: Normal Color, Warm/Dry Course - Vital Signs Last Recorded V/S: Last Vital Signs Temp 97.5 F 11/12/19 19:02 Pulse 53 L 11/12/19 19:02 Resp 18 11/12/19 19:02 BP 163/89 H 11/12/19 19:02 Pulse Ox 98 11/12/19 19:02 - Orders/Labs/Meds Meds: Medications Discontinued Medications Generic Name Dose Route Start Last Admin Trade Name Claudia PRN Reason Stop Dose Admin Lorazepam 1 mg 11/12/19 20:14 11/12/19 20:23 Ativan PO 11/12/19 20:15 1 mg ONETIME ONE Administration - Re-Assessments/Exams Free Text/Narrative Re-Assessment/Exam: Reviewed exam findings and MRI results with patient. Had a discussion with the patient with head concussion. She was given Ativan for anxiety. Encouraged to follow up with PCP in the clinic for anxiety, treatment and MRI with contrast scheduled. Encouraged patient to push fluids and rest. Strongly recommended to take the muscle relaxants that she has at home. Departure - Departure Time of Disposition: 20:24 Disposition: Home, Self-Care 01 Condition: Good Clinical Impression: Head concussion, Generalized anxiety disorder - Discharge Information Instructions: Generalized Anxiety Disorder, Adult, Post-Concussion Syndrome Forms: ED Department Discharge Additional Instructions: Encouraged to follow up with PCP in the clinic for anxiety, treatment and MRI with contrast scheduled. Encouraged patient to push fluids and rest. Strongly recommended to take the muscle relaxants that she has at home. Sepsis Event Note (ED) - Evaluation Sepsis Screening Result: No Definite Risk - Focused Exam Vital Signs: Vital Signs Temp Pulse Resp BP Pulse Ox 11/12/19 19:02 97.5 F 53 L 18 163/89 H 98 I have read and agree with the documentation that has been completed regarding this visit. By signing this record, I attest that the documentation was completed in my physical presence and is an accurate record of the encounter.
== END 2019-11-12 20:30 | disposition home or self-care (01) ==
LOC: DL.ED 17:55
DX: F07.81 Postconcussional syndrome (principal); F41.1 Generalized anxiety disorder; E66.9 Obesity, unspecified; Z68.28 Body mass index [BMI] 28.0-28.9, adult; F17.210 Nicotine dependence, cigarettes, uncomplicated; Z88.5 Allergy status to narcotic agent
CPT/HCPCS: 99283; A9270

== ENCOUNTER 2024-09-23 12:55 | Emergency (ER) | payer MEDICAID, OTHER ==
[2024-09-23] MEDS: LORazepam 2 MG/ML SDV IVPUSH ONE (13:19)
[2024-09-23 13:22] LABS: PLATELET COUNT,PLT 254 10^3/uL (150-450); RED BLOOD CELL COUNT 5.20 10^6/uL (4.2-5.4); WHITE BLOOD CELL COUNT,WBC 13.9 10^3/uL (5.0-10.0)
[2024-09-23 13:23] LABS: BASOPHILS PERCENT AUTO 0.2 % (0.0-1.0); EOSINOPHILS PERCENT AUTO 1.7 % (1.0-3.0); LYMPHOCYTES PERCENT AUTO 6.3 % (20.5-50.1); MONOCYTES PERCENT AUTO 4.2 % (2-8); NEUTROPHILS PERCENT AUTO 87.6 % (42.2-75.2)
[2024-09-23] MEDS: Sodium Chloride 0.9% 10 ML Syringe FLUSH PRN (13:23)
[2024-09-23 13:41] LABS: A/G RATIO 1.1; ALANINE AMINOTRANSFERASE,ALT 20.0 U/L (14-59); ASPARTATE AMNIOTRANSFERASE,AST 10.0 U/L (15-37); BILIRUBIN TOTAL 1.0 mg/dL (0.2-1.0); BLOOD UREA NITROGEN,BUN 5.0 mg/dL (7-18); CARBON DIOXIDE,CO2 24.0 mmol/L (21-32); CHLORIDE,CL 104.0 mmol/L (98-107); CREATININE 0.71 mg/dL (0.55-1.02); EST CRCL DRUG DOSING (CG) 83.99 mL/min; GLUCOSE RANDOM 104.0 mg/dL (70-99); POTASSIUM,K 4.1 mmol/L (3.5-5.1); PROTEIN TOTAL,TP 7.7 g/dL (6.4-8.2); SODIUM,NA 138.0 mmol/L (136-145)
[2024-09-23 13:42] LABS: INR 1.0 (0.9-1.2)
[2024-09-23 13:44] LABS: ESTIMATED GFR 98.0 mL/min (>=60)
[2024-09-23 13:48] LABS: EOSINOPHILS PERCENT MAN 2 % (1-3); LYMPHOCYTES PERCENT MAN 6 % (20-50); MONOCYTES PERCENT MAN 3 % (2-8); SEG NEUTROPHILS PERCENT MAN 90 % (42-75)
[2024-09-23] MEDS: Ondansetron 4 MG/2 ML SDV IVPUSH ONE (13:57)
[2024-09-23] MEDS: Iopamidol 612 MG/ML 100 ML Bottle IVPUSH ONE (15:15)
[2024-09-23 15:22] LABS: APPEARANCE,URINE CLEAR (CLEAR); GLUCOSE,URINE NEGATIVE (NEGATIVE); OCCULT BLOOD,URINE TRACE-INTACT (NEGATIVE)
[2024-09-23 15:34] LABS: EPITHELIAL CELLS,URINE FEW /HPF (NOT SEEN)
== END 2024-09-23 16:22 | disposition home or self-care (01) ==
LOC: DL.ED 12:55
DX: J40 Bronchitis, not specified as acute or chronic (principal); J06.9 Acute upper respiratory infection, unspecified; R11.2 Nausea with vomiting, unspecified; E66.9 Obesity, unspecified; Z79.899 Other long term (current) drug therapy; Z88.5 Allergy status to narcotic agent; Z68.26 Body mass index [BMI] 26.0-26.9, adult
CPT/HCPCS: 36415; 71046; 74177; 80053; 81001; 83690; 83735; 84484; 85025; 85610; 87086; 87426; 93005; 96361; 96374; 96375; 99285; J2060; J2405; J7030; Q9967